=== PATIENT | female | born 1965 | race Caucasian/White ===

== ENCOUNTER 2023-02-08 10:53 | Inpatient (IN) | payer OTHER ==
[~2023-02-08] VITALS: Ht 165.1 cm; Wt 81.7 kg
[2023-02-08 11:27] LABS: BASOPHILS ABSOLUTE AUTO 0.02 K/mm3 (0.00-0.23); BASOPHILS PERCENT AUTO 0 % (0-2); EOSINOPHILS PERCENT AUTO 0 % (0-6); Hematocrit 42.1 % (33.0-51.0); Hemoglobin 14.5 g/dL (11.5-16.0); IMMATURE GRAN ABSOLUTE AUTO 0.02 K/mm3 (0.00-0.10); IMMATURE GRAN PERCENT AUTO 0 % (0-1); LYMPHOCYTES ABSOLUTE AUTO 0.67 K/mm3 (0.84-5.20); LYMPHOCYTES PERCENT AUTO 10 % (21-46); MONOCYTES PERCENT AUTO 4 % (4-13); Mean Corpuscular HGB 33.6 pg (26.0-34.0); Mean Corpuscular HGB Conc 34.4 g/dL (31.5-36.5); Mean Corpuscular Volume 98 fL (80-100); Mean Platelet Volume 9.6 fL (9.1-12.4); NEUTROPHILS ABSOLUTE AUTO 6.04 K/mm3 (1.96-9.15); NEUTROPHILS PERCENT AUTO 86 % (41-73); Platelet Count 162 K/mm3 (150-400); RDW Coefficient Variation 12.5 % (11.7-14.2); RDW Standard Deviation 45.4 fL (35.1-46.3); Red Blood Cell Count 4.31 M/mm3 (3.80-5.20); White Blood Cell Count 7.05 K/mm3 (4.00-11.30)
[2023-02-08 13:21] LABS: Albumin, Blood 3.6 g/dL (3.4-5.0); Albumin/Globulin Ratio 0.8 (0.8-1.8); Bilirubin, Total 0.6 mg/dL (0.1-1.0); Bun/Creatinine Ratio 6.8 (12.0-20.0); Calcium, Blood 8.9 mg/dL (8.5-10.1); Creatinine, Blood 1.18 mg/dL (0.40-1.00); Globulin, Blood 4.8 g/dL (2.2-4.0); Potassium, Blood 3.8 mmol/L (3.5-5.5); Total Protein, Blood 8.4 g/dL (6.4-8.2)
[2023-02-08] MEDS ORDERED: LEVSOD100 PO ×2 (15:14→15:16)
[2023-02-08] MEDS ORDERED: LOSA50 PO (15:17)
[2023-02-08] MEDS ORDERED: MELO7.5 PO (15:18)
[2023-02-08] MEDS ORDERED: ESCI20 PO (15:18)
[2023-02-08 15:50] LABS: International Normalized Ratio 1.01; Prothrombin Time Results 10.6 Sec (9.7-11.5)
[2023-02-08 15:57] VITALS: BP 106/71
--- NOTE | 2023-02-08 18:46 | NUR ---
PT HAS BEEN STABLE SINCE ADMISSION. PAIN MANAGED WELL WITH PRN DILAUDID. TOLERATING ICE WATER. NO NAUSEA OR EMESIS. PT INDEP TO BATHROOM NEEDED. IV FLUIDS INFUSING. PLAN FOR IV ABX AT THIS POINT WITHOUT SURGERY. PT CALLS APPROPRIATELY NEEDED.
[2023-02-08 19:45] VITALS: BP 103/64
[2023-02-08 21:10] VITALS: BP 117/61
--- NOTE | 2023-02-08 21:33 | NUR ---
CHEST PAIN AT 2109, I WENT TO ROUND ON THE PATIENT AND FOUND THE CHARGE NURSE AT BEDSIDE WITH THE PATIENT. THE PATIENT WAS COMPLAINING OF 6/10 SUBSTERNAL CHEST PAIN THAT WAS SHARP, STABBING, AND NON RADIATING. THE PATIENT STATED IT WORSENED WITH INSPIRATION. VITALS OBTAINED, STABLE AT THIS TIME. CHARGE NURSE BROUGHT IN THE EKG MACHINE, THIS WAS BEING PERFORMEDDRAnuel OVERTON ENTERED THE ROOM. HE STAYED AND READ THE EKG, STATED THERE WERE NI ACUTE RHYTHM OR RATE CHANGES AND THAT HER CARDIAC STATUS WAS STABLE FROM THIS POINT OF VIEW. HE PLANS TO ORDER LABS. THE PATIENT STATED BY THE TIME THE EKG WAS FINISHED THAT HER CHEST PAIN HAD ENDED AND THAT OVERALL IT ONLY LASTED 5 MINUTES. PLAN TO TAKE VITALS HOURLY UNTIL MIDNIGHT AND AWAIT LAB VALUES, PLAN TO CALL WITH FURTHER CONCERNS
--- NOTE | 2023-02-08 21:37 | NUR ---
LATE ENTRY THIS RN WENT INTO PTS RM TO FIX IV FROM BEEPING WHILE PRIMARY NURSE IN ANOTHER RM & PT REPORTED 5/10 SHARP CHEST PAIN RADIATING ACROSS CHEST, STATED SHE HAD NO CARDIAC HX. PT WAS DYSPNIC AT THIS TIME. PRIMARY NURSE CAME IN & UPDATED HER ON PTS CHEST PAIN. VITALS TAKEN, EKG STARTED & DR OVERTON CAME INTO PTS RM TO ASSESS PT. BY THE TIME EKG DONE, PT REPORTED CHEST PAIN HAD CLEARED UP BUT IT LASTED ROUGHLY 5MIN. DR OVERTON INFORMED HE WOULD PLACE NEW ORDERS.
[2023-02-08 22:23] VITALS: BP 131/75
[2023-02-09] VITALS (9 sets, daily range): BP systolic 115–186; BP diastolic 61–86
[2023-02-09 03:57] LABS: Hematocrit 34.2 % (33.0-51.0); Hemoglobin 11.4 g/dL (11.5-16.0); Mean Corpuscular HGB 33.2 pg (26.0-34.0); Mean Corpuscular HGB Conc 33.3 g/dL (31.5-36.5); Mean Corpuscular Volume 100 fL (80-100); Mean Platelet Volume 9.7 fL (9.1-12.4); Platelet Count 127 K/mm3 (150-400); RDW Coefficient Variation 12.9 % (11.7-14.2); RDW Standard Deviation 47.3 fL (35.1-46.3); Red Blood Cell Count 3.43 M/mm3 (3.80-5.20); White Blood Cell Count 6.66 K/mm3 (4.00-11.30)
[2023-02-09 04:19] LABS: BAND PERCENT MAN 14 % (0-8); BASOPHILS PERCENT MAN 0 % (0-2); EOSINOPHILS PERCENT MAN 0 % (0-6); LYMPHOCYTES ABSOLUTE MAN 0.73 K/mm3 (0.84-5.20); LYMPHOCYTES PERCENT MAN 11 % (21-46); MONOCYTES PERCENT MAN 0 % (4-13); NEUTROPHILS ABSOLUTE MAN 5.92 K/mm3 (1.96-9.15); SEG NEUTROPHILS PERCENT MAN 75 % (41-73); TOTAL CELLS COUNTED 100
[2023-02-09 04:35] LABS: Bun/Creatinine Ratio 11.9 (12.0-20.0); Calcium, Blood 7.7 mg/dL (8.5-10.1); Creatinine, Blood 1.09 mg/dL (0.40-1.00); Potassium, Blood 3.7 mmol/L (3.5-5.5)
--- NOTE | 2023-02-09 05:23 | NUR ---
SHIFT SUMMARY SEE PREVIOUS NOTE FOR CARDIAC EVENT, NO NEW ORDERS OBTAINED AT THAT TIME. PT HAS REMAINED ASYMPTOMATIC SINCE. VSS. PT SLEPT ON AND OFF T/O THE NIGHT. MEDICATED FOR PAIN REGULARLY WITH PRN'S. PT TOLLERATING CLEAR PO INTAKE W/O N/V. PT VOIDING W/O DIFFICULTY. NO FLATTUS OR BM'S NOTED. PLAN FOR PT TO BE ASSESSED TO SEE IF ABD SURGERY IS NEEDED. THE PATIENT IS CURRENTLY SLEEPING, IN NO DISTRESS, CALL LIGHT IN REACH
--- NOTE | 2023-02-09 10:05 | NUR ---
IGNITION RISK: PATIENT EDUCATED ON RISK REGARDING IGNITION SOURCES AND RISK OF INJURY WHILE OXYGEN IS IN USE. PATIENT DENIES SMOKING AND VERBALIZE UNDERSTANDING.
--- NOTE | 2023-02-09 17:37 | NUR ---
SHIFT SUMMARY: PT REMAINS ALERT AND ORIENTED X4. ABLE TO FOLLOW COMMANDS AND MAKE NEEDS KNOWN. BP AND HR STABLE, AFEBRILE, SATS >94% ON ROOM AIR. PT WITH NON-PRODUCTIVE COUGH, BREATHING TX ORDERED. PT COMPLAINING OF 8/10 ABDOMINAL PAIN THROUGHOUT THE DAY, MEDICATED PER EMAR. SISTER AT BEDSIDE THIS AFTERNOON AND UPDATED ON PT CARE WITH PERMISSION. NS GTT 200ML/HR. SBA TO AND FROM BATHROOM. NO BM. BED IN LOW, CALL LIGHT IN REACH, WILL REPORT TO ONCOMING RN.
[2023-02-09 23:03] LABS: Base Excess Venous -3.1 mmol/L; Bicarbonate Venous 20.9 mmol/L (24.0-30.0); PCO2 Venous 59.5 mmHg (38-42); pH Blood Venous 7.23 (7.34-7.37)
--- NOTE | 2023-02-09 23:36 | NUR ---
REPORT REPORT GIVEN TO PCU NURSE. PT TO BE TRANSFERRED TO PCU 3
[2023-02-10] VITALS (21 sets, daily range): BP systolic 108–147; BP diastolic 63–85
--- NOTE | 2023-02-10 | NUR ---
SUMMARY OF EVENTS AT 2220 I TOOK THE PATIENTS VITALS AND NOTED HTN, HIGH RR, AND THAT THE PT HAS INCREASED WOB AND APPEARED LETHARGIC. CALL PLACED TO DR OVERTON. ORDER OBTAINED OR VBG, CHEST X RAY, RESPIRATORY PANNEL, AND A SPUTUM CULTURE. RESULTS CAME BACK FROM VBG, DR QUENTIN HINOJOSA UPDATED ON THIS. RECIEVED ORDER TO MOVE PT TO PCU AND PUT HER ON A BIPAP. DURING PACKING UP PTS BELONGINGS, PT REPORTS THAT SHE RECIEVED A PREVIOUS DIAGNOSIS OF LATENT TB. DR OVERTON UPDATED AGAIN, HE THEN EVALUATED HER X RAY AND SAW NO SIGN OF TB, BUT PLANS TO RUN FURTHER TESTS. PT TRANSFERRED TO PCU AT 2342.
[2023-02-10 00:14] LABS: Adenovirus Not Detected (NOT DETECT); Bordetella pertussis Not Detected (NOT DETECT); Chlamydophila pneumoniae Not Detected (NOT DETECT); Coronavirus 229E Not Detected (NOT DETECT); Coronavirus HKU1 Not Detected (NOT DETECT); Coronavirus NL63 Not Detected (NOT DETECT); Coronavirus OC43 Not Detected (NOT DETECT); Human Metapneumovirus Not Detected (NOT DETECT); Human Rhinovirus/Enterovirus Not Detected (NOT DETECT); Influenza A/2009-H1 Detected (NOT DETECT); Influenza A/H1 Not Detected (NOT DETECT); Influenza A/H3 Not Detected (NOT DETECT); Influenza B Not Detected (NOT DETECT); Mycoplasma pneumoniae Not Detected (NOT DETECT); Parainfluenza Virus 1 Not Detected (NOT DETECT); Parainfluenza Virus 2 Not Detected (NOT DETECT); Parainfluenza Virus 3 Not Detected (NOT DETECT); Parainfluenza Virus 4 Not Detected (NOT DETECT); Respiratory Syncytial Virus Not Detected (NOT DETECT); SARS-Cov-2 (COVID-19), BioFire Not Detected (NOT DETECT)
[2023-02-10 00:25] LABS: Hematocrit 33.7 % (33.0-51.0); Hemoglobin 11.6 g/dL (11.5-16.0); Mean Corpuscular HGB 33.8 pg (26.0-34.0); Mean Corpuscular HGB Conc 34.4 g/dL (31.5-36.5); Mean Corpuscular Volume 98 fL (80-100); Mean Platelet Volume 9.8 fL (9.1-12.4); Platelet Count 124 K/mm3 (150-400); RDW Coefficient Variation 12.9 % (11.7-14.2); RDW Standard Deviation 46.5 fL (35.1-46.3); Red Blood Cell Count 3.43 M/mm3 (3.80-5.20)
[2023-02-10 00:44] LABS: Albumin, Blood 2.6 g/dL (3.4-5.0); Albumin/Globulin Ratio 0.7 (0.8-1.8); Bilirubin, Total 0.4 mg/dL (0.1-1.0); Bun/Creatinine Ratio 8.9 (12.0-20.0); Calcium, Blood 7.8 mg/dL (8.5-10.1); Creatinine, Blood 0.78 mg/dL (0.40-1.00); Globulin, Blood 3.9 g/dL (2.2-4.0); Potassium, Blood 3.5 mmol/L (3.5-5.5); Total Protein, Blood 6.5 g/dL (6.4-8.2)
[2023-02-10 01:02] LABS: BAND PERCENT MAN 12 % (0-8); BASOPHILS PERCENT MAN 0 % (0-2); EOSINOPHILS PERCENT MAN 0 % (0-6); LYMPHOCYTES % ATYPICAL MANUAL 1 % (0-0); LYMPHOCYTES ABSOLUTE MAN 0.35 K/mm3 (0.84-5.20); LYMPHOCYTES PERCENT MAN 21 % (21-46); MONOCYTES ABSOLUTE MAN 0.11 K/mm3 (0.16-1.47); MONOCYTES PERCENT MAN 7 % (4-13); NEUTROPHILS ABSOLUTE MAN 1.13 K/mm3 (1.96-9.15); SEG NEUTROPHILS PERCENT MAN 59 % (41-73); TOTAL CELLS COUNTED 100
[2023-02-10 04:33] LABS: Base Excess Venous -4.9 mmol/L; PCO2 Venous 49.6 mmHg (38-42); pH Blood Venous 7.26 (7.34-7.37)
--- NOTE | 2023-02-10 06:17 | NUR ---
ASSUMPTION OF CARE AND SHIFT SUMMARY PT TRANSFERRED FROM SURGICAL FLOOR AT 2340, THIS RN ASSUMED CARE OF PT AT THIS TIME. PT ARRIVED VIA HOSPITAL BED ON 2 L OF O2 VIA NC. PT APPEARS PALE BUT IS A&O X4. PT IS INTERACTING AND RESPONDING APPROPRIATELY TO QUESTIONS. PT PLEASANT AND COOPERTIVE WITH CARE. PT TRANSFERRED TO PCU HOSPITAL BED. VSS AT THIS TIME. PT REPORTS 9/10 PAIN IN ABDOMEN, MEDICATION PER EMAR ADMINISTERD. PT ORIENTED TO ROOM AND ASSESSMENT COMPLETE. BIPAP PLACED ON PT BY RT. PT LUNG SOUNDS WHEEZY, PT DENIES SOB OR DIFFICULTY BREATHING. PT REMAINS ON BIPAP W/BREAKS NEEDED. REPEAT VBG NOT IMPROVED, SEE NOTES AND CHART. RESIDENT NOTIFIED, NO NEW ORDERS. PT LACTIC ACID CONTINUES TO INCREASE, RESIDENT NOTIFIED. ORDER FOR 500 ML BOLUS OF NS X1 AND CONTINUATION OF NS FLUIDS PER EMAR. ABX COVERAGE PER EMAR. PT USING BSC W/1 PERSON ASSIST, PT TOLERATING THIS WELL. PT VOIDING WELL. NO BM THIS SHIFT. BS PRESENT. PT REPORTS NO FLATUS OR "GAS". DENIES N/V THIS SHIFT. DENIES CHILLS. PT HAD MAX TEMP OF 101.0 ON TRANSFER BUT SINCE HAS DECREASED, SEE VITAL SIGNS. PT CONTINUES TO HAVE A PRODUCTIVE COUGH W/THICK GREEN SPUTUM. I.S. AND FLUTTER VALVE AT BEDSIDE, PT IS COMPLETING THESE INDEPENDENTLY. PT INTAKE OF WATER IS GOOD, PT MUCOUS MEMBRANES DRY AND PT REPORTS "DRY MOUTH". PT RESTING ON AND OFF THROUGHOUT SHIFT. WILL UPDATE ONCOMING RN. PT EDUCATED ON RISK OF INJURY AND IGNITION RISKS. PT REPORTS PAST TOBACCO USE, REPORTS QUITTING 2 WEEKS AGO. PT DECLINES ANY NICOTINE PATCHES. PT EDUCATED ON TOBACCO FREE CAMPUS. PT VERBALIZES UNDERSTANDING OF RISKS AND TOBACCO FREE CAMPUS. CALL LIGHT IN REACH AND PT CURRENTLY SLEEPING
[2023-02-10 06:34] LABS: Hemoglobin 10.2 g/dL (11.5-16.0); Mean Corpuscular HGB 32.8 pg (26.0-34.0); Mean Corpuscular HGB Conc 32.9 g/dL (31.5-36.5); Mean Corpuscular Volume 100 fL (80-100); Mean Platelet Volume 9.6 fL (9.1-12.4); Platelet Count 124 K/mm3 (150-400); RDW Coefficient Variation 13.1 % (11.7-14.2); RDW Standard Deviation 47.6 fL (35.1-46.3); Red Blood Cell Count 3.11 M/mm3 (3.80-5.20)
[2023-02-10 06:57] LABS: Albumin, Blood 2.3 g/dL (3.4-5.0); Albumin/Globulin Ratio 0.6 (0.8-1.8); Bilirubin, Total 0.5 mg/dL (0.1-1.0); Bun/Creatinine Ratio 7.7 (12.0-20.0); Calcium, Blood 7.6 mg/dL (8.5-10.1); Creatinine, Blood 0.78 mg/dL (0.40-1.00); Globulin, Blood 3.8 g/dL (2.2-4.0); Potassium, Blood 3.8 mmol/L (3.5-5.5); Total Protein, Blood 6.1 g/dL (6.4-8.2)
[2023-02-10 06:58] LABS: BAND PERCENT MAN 12 % (0-8); BASOPHILS PERCENT MAN 0 % (0-2); EOSINOPHILS PERCENT MAN 0 % (0-6); LYMPHOCYTES % ATYPICAL MANUAL 2 % (0-0); LYMPHOCYTES ABSOLUTE MAN 0.43 K/mm3 (0.84-5.20); LYMPHOCYTES PERCENT MAN 6 % (21-46); MONOCYTES ABSOLUTE MAN 0.05 K/mm3 (0.16-1.47); MONOCYTES PERCENT MAN 1 % (4-13); NEUTROPHILS ABSOLUTE MAN 4.91 K/mm3 (1.96-9.15); SEG NEUTROPHILS PERCENT MAN 79 % (41-73); TOTAL CELLS COUNTED 100
--- NOTE | 2023-02-10 07:30 | NUR ---
PHONE CALL: Pt's daughter given update after permission was reeived from patient.
--- NOTE | 2023-02-10 11:16 | NUR ---
PRE-OP NOTE PT REMAINS IN HOSPITAL ROOM, SISTER AT BEDSIDE, PT A&OX4, DROWSY, WHEEZES HEARD BILATERALLY, BREATHING RA. PT PREPARED FOR SURGERY IN HOSPITAL ROOM. Pre-Op teaching done. Pt verbalizes understanding.PT LAST DRANK CLEARS AT 10AM, DR CASTELAN AWARE. PT RINGS GIVEN TO SISTER PRIOR TO SURGERY, DENTURES REMOVED AND LEFT IN HOSPITAL ROOM. NO OTHER CONCERNS
--- NOTE | 2023-02-10 11:28 | NUR ---
PT TO OR: on hospital bed with OR nurses.
--- NOTE | 2023-02-10 15:15 | NUR ---
PT BACK TO ROOM
--- NOTE | 2023-02-10 18:02 | NUR ---
SHIFT SUMMARY: I assumed care of this patient at 0700. Pt to OR today for bowel resection and illiostomy placement. Since return, pt has denied pain. Supplemental O2 titrated down to 2L NC which pt is tolerating well. Ostomy bag with scant red drainage. JONA dressing midline; C/D/I. Pt's sister at bedside and supportive for much of day.
[2023-02-11] VITALS (8 sets, daily range): BP systolic 146–178; BP diastolic 79–89
[2023-02-11 04:59] LABS: BASOPHILS ABSOLUTE AUTO 0.04 K/mm3 (0.00-0.23); BASOPHILS PERCENT AUTO 1 % (0-2); Hematocrit 31.6 % (33.0-51.0); Hemoglobin 10.7 g/dL (11.5-16.0); Mean Corpuscular HGB 33.4 pg (26.0-34.0); Mean Corpuscular HGB Conc 33.9 g/dL (31.5-36.5); Mean Corpuscular Volume 99 fL (80-100); Mean Platelet Volume 9.9 fL (9.1-12.4); Platelet Count 158 K/mm3 (150-400); RDW Coefficient Variation 13.2 % (11.7-14.2); RDW Standard Deviation 47.8 fL (35.1-46.3); White Blood Cell Count 8.75 K/mm3 (4.00-11.30)
[2023-02-11 05:03] LABS: EOSINOPHILS ABSOLUTE AUTO 0.01 K/mm3 (0.00-0.68); EOSINOPHILS PERCENT AUTO 0 % (0-6); IMMATURE GRAN ABSOLUTE AUTO 0.03 K/mm3 (0.00-0.10); IMMATURE GRAN PERCENT AUTO 0 % (0-1); LYMPHOCYTES ABSOLUTE AUTO 0.71 K/mm3 (0.84-5.20); LYMPHOCYTES PERCENT AUTO 8 % (21-46); MONOCYTES ABSOLUTE AUTO 0.27 K/mm3 (0.16-1.47); MONOCYTES PERCENT AUTO 3 % (4-13); NEUTROPHILS ABSOLUTE AUTO 7.69 K/mm3 (1.96-9.15); NEUTROPHILS PERCENT AUTO 88 % (41-73)
[2023-02-11 05:16] LABS: Bun/Creatinine Ratio 12.6 (12.0-20.0); Calcium, Blood 8.2 mg/dL (8.5-10.1); Creatinine, Blood 0.71 mg/dL (0.40-1.00); Potassium, Blood 3.8 mmol/L (3.5-5.5)
[2023-02-11 05:22] LABS: BAND PERCENT MAN 7 % (0-8); BASOPHILS PERCENT MAN 0 % (0-2); EOSINOPHILS PERCENT MAN 0 % (0-6); LYMPHOCYTES ABSOLUTE MAN 0.61 K/mm3 (0.84-5.20); LYMPHOCYTES PERCENT MAN 7 % (21-46); MONOCYTES PERCENT MAN 0 % (4-13); NEUTROPHILS ABSOLUTE MAN 8.13 K/mm3 (1.96-9.15); SEG NEUTROPHILS PERCENT MAN 86 % (41-73); TOTAL CELLS COUNTED 100
--- NOTE | 2023-02-11 06:24 | NUR ---
SHIFT [place] PT REMAINS A&O X4, ALTHOUGH LETHARGIC AT TIMES. PT ABLE TO BE AROUSED AND IS RESPONDING TO QUESTIONS APPROPRIATELY. PT STATES MIND "IS FOGGY FROM WHAT HAS HAPPENED AND LOST TRACK OF EVENTS OR TIME". PT REDIRECTED. VSS; ALTHOUGH LAST SET OF VITALS SHOWED ELAVATED SBP 0F 176-178. RESIDENT NOTIFIED, ORDERS FOR 10MG HYDRALIZINE IV PUSH X1. THIS RN ADMINISTERED, WILL REASSESS BP. PT DOES REPORT A HEADACHE. PT TITRATED OFF O2 AROUND 0430 THIS AM, SPO2 90-94%. OCCASSIONALLY DESATS WHILE SLEEPING TO 88-89% BUT DOES NOT SUSTAIN. PT DID NOT NEED BIPAP THIS SHIFT, ALTHOUGH BIPAP STILL AT BEDSIDE. LS IMPROVING BUT STILL COARSE AND MILDLY WHEEZY. PT STILL HAS PRODUCTIVE COUGH, I.S AND FLUTTER VALCE AT BEDSIDE. PT COMPLETING EXERCISES. EDUCATION PROVIDED ON IMPORTANCE OF THIS. ILIOSTOMY SITE WNL; STOMA RED IN APPEARANCE, APPLIANCE IN PLACE WITH SMALL AMOUNT OF RED DRAINAGE. OF NOTE, SOME DRAINAGE DID LEAK OUT OF BAG ONTO DRESSING LAST NIGHT. PT REPORTS PAIN 3-7/10; MEDICATION ADMINSTERED PER EMAR NEEDED. PT UP IN ROOM TO USE BSC AND DANGLING ON EOB. PT TOLERATING MOVEMENT AND AMBULATION WELL. PT SEEMS WITHDRAWN AND FLAT AFFECT, INITIALLY UNINTERESTED IN ILIOSTOMY BUT HAS SLOWLY BEGAN ASKING QUESTIONS. EDUCATION PROVIDED PT ACCEPTS. WILL PASS ALONG TO DAYSHIFT RN. PT ANXIOUS TO SEE SURGEON, CONTINUES TO ASK "WHEN HE WILL VISIT AND BE HERE TO CHECK IN". PT VOIDING WELL THIS SHIFT. NS INFUSING AT 100 MLS/HR PER EMAR. ABX ADMINISTERED PER EMAR. CALL LIGHT IN REACH. WILL UPDATE ONCOMING RN
--- NOTE | 2023-02-11 10:02 | NUR ---
AM NOTE: ALERT AND ORIENTED X4. GROGGY/DROWSY UPON WAKING UP THIS AM. ABLE TO TELL ME ALL DETAILS OF WHY PATIENT IS HERE AND WHAT IS GOING ON. DENIES NUMBNESS/TINGLING. ON ROOM AIR SATING MID 90'S. LUNGS SOUNDING COARSE WITH WHEEZE. RESPIRATORY IN THIS AM AND BREATHING TREATMENT GIVEN. BIPAP ON STANDBY AT BEDSIDE, ALTHOUGH PATIENT DID NOT USE LAST NIGHT. OCCASIONAL COUGH WITH GREEN/YELLOW SPUTUM. NEEDING SPUTUM SAMPLE. TELE SHOWING SR WITH HR 80'S. DENIES CHEST PAIN/PRESSURE/PALPITATIONS. BP STABLE. NO SIGNS OF EDEMA. NS INFUSING PER EMAR. ABX INFUSING. BOWEL TONES HYPOACTIVE. PATIENT PASSING GAS, NO BOWEL MOVEMENT. NEW ILEOSTOMY. STOMA RED WITH SEROSANG DRAINAGE DRAINING INTO BAG. MIDLINE JONA DRESSING IN PLACE. PATIENT REMAINS NPO. ORAL CARE Q4 AND NEEDED. UP TO BSC TO VOID THIS AM. MEDICATED FOR ABDOMINAL PAIN THIS AM. CALL LIGHT IN REACH.
--- NOTE | 2023-02-11 12:31 | NUR ---
DR. HEARD IN TO SEE PATIENT. CLEARED FOR CLEAR LIQUID DIET. EATING JELLO AND DIRNKING WATER AT THIS TIME. PATIENT SITTING UP IN BED AND ABLE TO TURN SELF. DRESSING AND OSTOMY CHANGED WITH 2ND FOR HELP. PATIENT DENIES PAIN AT THIS TIME. STOMA REMAINS BRIGHT RED WNL. MIDLINE DRESSING C/D/I. NOON VITALS STABLE. CALL LIGHT IN REACH. USING FLUTTER VALVE AND IS AT BEDSIDE.
--- NOTE | 2023-02-11 16:54 | NUR ---
SHIFT SUMMARY: NO ACUTE CHANGES. PATIENT VITAL SIGNS REMAIN STABLE. TOLERATING SMALL AMOUNT OF CLEAR LIQUID DIET. DRANK A VERY SMALL AMOUNT OF WATER AND HAD ONE JELLO. OSTOMY AND MIDLINE DRESSING CHANGED. DR. HEARD IN THIS AM. ILEOSTOMY WNL. STOMA REMAINS RED AND DRAINING SEROSANG FLUID. NO GAS/AIR NOTED IN OSTOMY BAG. REMAINS ON ROOM AIR. PATIENT USING FLUTTER AND IS AT BEDSIDE. UP TO BSC TO URINATE. TURNING AND MOVING SELF AROUND IN BED. PATIENT GETTING UP TO EDGE OF BED ABOUT EVERY 2 HOURS AND UP WALKING TO BSC WHEN NEEDING TO URINATE. BOWEL TONES HYPOACTIVE. DENIES NAUSEA/VOMITING THROUGHOUT SHIFT. PT UPDATING FAMILY ON PHONE THROUGHOUT SHIFT. NS AND ABX INFUSING PER EMAR. REMAINS ON ROOM AIR. NO TELE EVENTS, SR WITH HR 60-80'S. CONTINUES TO DENY CHEST PAIN/PRESSURE. CALL LIGHT IN REACH. MAKING NEEDS KNOWN. TALKING WITH SISTER ON PHONE SITTING AT EDGE OF BED AT THIS TIME.
[2023-02-11 20:08] LABS: QUANTIFERON MITOGEN VALUE 1.31 IU/mL (.); QUANTIFERON NIL VALUE 0.07 IU/mL (.); QUANTIFERON TB1 AG VALUE 0.11 IU/mL (.); QUANTIFERON TB2 AG VALUE 0.12 IU/mL (.); QUANTIFERON-TB GOLD PLUS Negative (Negative)
--- NOTE | 2023-02-11 21:47 | NUR ---
ASSUMED CARE: Assumed care of pt at 1900. She is sleeping, wakes easily to voice. Oriented x4, denies pain. At around 2044, her O2 sats were noted to be in the 70s on room air. Placed on 2L NC, sats now in high 90s. Her lungs sound coarse with rhonchi and expiratory wheezes. Non-productive cough. Ostomy and abdominal dressing clean/dry/intact. Small amount of liquid brown output in ostomy, no gas yet. Pt educated on no ignition policy, she verbalizes understanding and agrees to comply with policy.
[2023-02-12] VITALS (8 sets, daily range): BP systolic 142–181; BP diastolic 72–86
[2023-02-12 04:25] LABS: Hematocrit 27.6 % (33.0-51.0); Hemoglobin 9.6 g/dL (11.5-16.0); Mean Corpuscular HGB Conc 34.8 g/dL (31.5-36.5); Mean Corpuscular Volume 98 fL (80-100); Mean Platelet Volume 9.8 fL (9.1-12.4); Platelet Count 161 K/mm3 (150-400); RDW Coefficient Variation 13.2 % (11.7-14.2); RDW Standard Deviation 47.6 fL (35.1-46.3); Red Blood Cell Count 2.82 M/mm3 (3.80-5.20)
[2023-02-12 05:07] LABS: Bun/Creatinine Ratio 15.2 (12.0-20.0); Creatinine, Blood 0.72 mg/dL (0.40-1.00); Potassium, Blood 3.7 mmol/L (3.5-5.5)
[2023-02-12 05:36] LABS: BASOPHILS PERCENT MAN 0 % (0-2); EOSINOPHILS PERCENT MAN 0 % (0-6); LYMPHOCYTES % ATYPICAL MANUAL 1 % (0-0); LYMPHOCYTES ABSOLUTE MAN 0.84 K/mm3 (0.84-5.20); LYMPHOCYTES PERCENT MAN 9 % (21-46); METAMYELOCYTE ABSOLUTE MAN 0.08 K/mm3 (0.00-0.00); METAMYELOCYTE PERCENT MAN 1 % (0-0); MONOCYTES ABSOLUTE MAN 0.58 K/mm3 (0.16-1.47); MONOCYTES PERCENT MAN 7 % (4-13); NEUTROPHILS ABSOLUTE MAN 6.88 K/mm3 (1.96-9.15); SEG NEUTROPHILS PERCENT MAN 82 % (41-73); TOTAL CELLS COUNTED 100
--- NOTE | 2023-02-12 06:42 | NUR ---
SHIFT SUMMARY: Pt slept well overnight. Medicated for pain with 0.5mg dilaudid x1. Pain well controlled. Scant amount of drainage on abdominal dressing and small amount of liquid brown drainage in ostomy bag. No gas yet. She has been in sinus bradycardia with rates dipping into the 40s overnight. BPs elevated at times but did not need PRN hydralazine. She remains on 1L NC due to desatting last night to the 70s while asleep. Lungs sound very coarse and wheezy.
--- NOTE | 2023-02-12 15:31 | NUR ---
PT TRANSITIONED TO SURGICAL STATUS WITH NO TELE. PT STILL HAS SOME ABD PAIN 7/10 MEDICATED PER EMAR, PT STILL HASNT PASS GAS NO BOWEL TONES DR VÁZQUEZ AWARE AWAITING FOR SURGEON TO SEE PT. IV PAIN MEDICINE SWITCHED TO PERCOCET PO. PT HAS HEARD A RUMBLING SOUND ON THE ILEOSTOMY THIS MORNING COUPLES TIMES, ILEOSTOMY HAS SOME SMALL AMOUNT OF BROWN LIQUID OUTPUT, BAG AND DRESSING WAS CHANGE DUE TO LEAKAGE TO THE JONA DRESSING, TRAFFIC I MANAGER RECOMMENDED TO PLACE MEDIPORE DRESSING INSTEAD DUE TO JONA NOT WORKING PROPERLY DUE TO LEAKAGE. JONA DRESSING WAS REMOVED AND REPLACED WITH MEDIPORE DRESSING. DR CARRANZA MADE AWARE. MARBELLA INTACT NO REDNESS AND UNUSUAL DRAINAGE NOTED ON THE INCISION. PT HAS BEEN GETTING UP TO USE BEDSIDE COMMODE IN THE ROOM INDEPENDENTLY. PT EVAL DONE NO CONCERNS AT THIS TIME. NS DC'D PER DR VÁZQUEZ PT REMAINS ON CLEAR LIQUID DIET. NO OTHER ISSUES ENCOUNTERED PT HAS BEEN CALLING APPROPRIATELY. WILL CONTINUE TO MONITOR.
--- NOTE | 2023-02-12 15:35 | NUR ---
TRIED TO REACH DR. CURRY PER DR. CARRANZA. UNABLE TO GET AHOLD OF HIM AT THIS TIME.
--- NOTE | 2023-02-12 15:37 | NUR ---
TRANSFER OF CARE: BEDSIDE REPORT GIVEN TO JAMAR FOX
--- NOTE | 2023-02-12 16:07 | NUR ---
TALKED TO DR. KRISHNAN I INFORMED DR. KRISHNAN THAT THE PT HAS ABSENT BOWEL SOUNDS IN ALL FOUR QUADRANTS, HAS A SHARP ACHING PAIN IN HER RIGHT SIDE, AND SHE HAD NOT PASSED GAS POST OP DAY TWO. HE GAVE NO FURTHER ORDERS AT THIS TIME.
--- NOTE | 2023-02-12 16:08 | NUR ---
PT PASSED GAS.
--- NOTE | 2023-02-12 16:39 | NUR ---
TOOK OVER REPORT FROM FLORENTIN TSAI RN. PT PENDING A BED ON SURGICAL FLOOR. REPORT WILL BE GIVEN TO MARGUERITE FOX. PT HYPERTENSIVE. MEDICATED W/ 10MG HYDRALIZINE. BP STABLE NOW.
--- NOTE | 2023-02-12 17:00 | NUR ---
TRANSFER TO ROOM 229 PATIENT TO ROOM 229 VIA W/C. SBA TO CHAIR, ENCOURAGED PATIENT TO SIT UP IN CHAIR UNTIL DINNER MEAL. PATIENT REPORTS PAIN 8/10 TO ABDOMEN AT THIS TIME, PLAN TO MEDICATE PER EMAR. OSTOMY INTACT, NO OUTPUT AT THIS TIME. MIDLINE INCISION W/ MEDIPORE DRESSING C/D/I. ORIENTED TO ROOM & CALL LIGHT. PATIENT DENIES ANY SOURCE OF IGNITION AT THIS TIME. WILL REPORT TO ONCOMING RN AT 1900.
[2023-02-13 04:42] VITALS: BP 167/79
--- NOTE | 2023-02-13 07:04 | NUR ---
SHIFT SUMMARY POD3 PERF DIVERTICULITIS W/ BOWEL RESECT AND LOOP ILIOSTOMY TO RUQ. PT A&OX4, INDEPEND IN ROOM. MIDLINE INCISION C/D/I, OSTOMY AND MIDLINE DRESSING CHANGED X1 THIS SHIFT. PT EDUCATED ON OSTOMY CARE, CHANGE, AND EMPTYING. PT ISOLATION FOR POS H1N1 ALSO RECEIVING ZITHROMAX AND ZOSYN IV-SL ABX. LUNGS WHEEZE T/O W/ RESP NEB TX ORDERED. SPUTUM CX OBTAINED. PT REPORTS FEELING MUCH BETTER THIS A.M. CALL LIGHT W/IN REACH. NO ACUTE CHANGES THIS SHIFT.
[2023-02-13 07:08] LABS: Hematocrit 28.4 % (33.0-51.0); Hemoglobin 9.5 g/dL (11.5-16.0); Mean Corpuscular HGB Conc 33.5 g/dL (31.5-36.5); Mean Corpuscular Volume 99 fL (80-100); Mean Platelet Volume 9.7 fL (9.1-12.4); Platelet Count 217 K/mm3 (150-400); RDW Coefficient Variation 13.5 % (11.7-14.2); RDW Standard Deviation 49.1 fL (35.1-46.3); Red Blood Cell Count 2.88 M/mm3 (3.80-5.20); White Blood Cell Count 7.94 K/mm3 (4.00-11.30)
[2023-02-13 07:14] LABS: Bun/Creatinine Ratio 18.7 (12.0-20.0); Creatinine, Blood 0.7 mg/dL (0.40-1.00); Potassium, Blood 3.4 mmol/L (3.5-5.5)
[2023-02-13 07:44] VITALS: BP 181/92
[2023-02-13 07:46] VITALS: BP 181/92
[2023-02-13 08:39] LABS: BAND PERCENT MAN 1 % (0-8); BASOPHILS PERCENT MAN 0 % (0-2); EOSINOPHILS PERCENT MAN 0 % (0-6); LYMPHOCYTES % ATYPICAL MANUAL 2 % (0-0); LYMPHOCYTES ABSOLUTE MAN 1.34 K/mm3 (0.84-5.20); LYMPHOCYTES PERCENT MAN 15 % (21-46); MONOCYTES ABSOLUTE MAN 0.31 K/mm3 (0.16-1.47); MONOCYTES PERCENT MAN 4 % (4-13); NEUTROPHILS ABSOLUTE MAN 6.27 K/mm3 (1.96-9.15); SEG NEUTROPHILS PERCENT MAN 78 % (41-73); TOTAL CELLS COUNTED 100
[2023-02-13 11:30] VITALS: BP 153/83
[2023-02-13 14:38] VITALS: BP 168/85
--- NOTE | 2023-02-13 16:33 | NUR ---
SHIFT SUMMARY POD 3 EX LAP RESECTION WITH NEW ILEOSTOMY PT REPORTS PAIN TOLERABLE T/O SHIFT. DENIES NEED OF MEDICATION. ILEOSTOMY PRODUCING BROWN LIQUID DURING SHIFT. PT HAS HAD MINIMAL APPETITE AND TWO BOUTS OF EMESIS, MEDICATED PER EMAR. AMBULATING FREQUENTLY IN ROOMS. VOIDING. MIDLINE INCISION CDI. ILEOSTOMY REMAINS PINK AND BEEFY. PT WORKED WITH PHYSICAL THERAPY TODAY. STILL HAS INFREQUENT COUGH. REPORTS FEELING WHEEZY STILL.
[2023-02-14 00:08] VITALS: BP 141/75
[2023-02-14 05:53] VITALS: BP 167/80
--- NOTE | 2023-02-14 06:37 | NUR ---
SHIFT SUMMARY POD 3, FOR PERF DIVERTIC RESULTING IN LOOP ILEOSTOMY. A&OX4, COOPERATIVE AND INDEPENDENT TO BATHROOM. PT MEDICATED W/ LASIX PRIOR TO THIS SHIFT W/ GOOD RESULTS. PT REPORTED BREATHING IMPROVED. LUNGS CLEAR DURING SHIFT ASSESSMENT AND BP W/IN NORMAL RANGE. PT SLEPT WELL T/O NIGHT UNTIL THIS A.M. AND REPORTS FEELING FLUID RETENTION. PT OSTOMY MAINTAINS INTACT AND DRAINING DARK GREEN LIQUID. WILL REPORT OFF TO ONCOMING SHIFT FOR LASIX PER PT REQUEST. NO C/O N/V THIS SHIFT. CALL LIGHT W/IN REACH.
[2023-02-14 07:16] VITALS: BP 170/72
[2023-02-14 09:15] LABS: Bun/Creatinine Ratio 15.4 (12.0-20.0); Calcium, Blood 7.8 mg/dL (8.5-10.1); Creatinine, Blood 0.65 mg/dL (0.40-1.00); Magnesium, Blood 1.6 mg/dL (1.6-2.4); Potassium, Blood 3.2 mmol/L (3.5-5.5)
[2023-02-14 15:22] VITALS: BP 161/77
--- NOTE | 2023-02-14 17:43 | NUR ---
PT EDUCATED ON RISK OF IGNITION SOURCES AND RISK OF INJURY WHILE USING OXYGEN. PT DENIES SMOKING OR HAVING A STEWARD/STEWARDESS NIGHT AND VERBALIZED UNDERSTANDING
--- NOTE | 2023-02-14 18:48 | NUR ---
SUMMARY: PT IS POD4 LOOP ILEOSTOMY. A/O, VSS. SURGICAL SITE WNL. PT RAMYA FULL LIQUID DIET TODAY,NO N/V. SCANT AMT OF DRAINAGE FROM OSTOMY, NO FLATUS PRESENT TODAY. PT IS INDEPENDENT IN ROOM. REPORTED THAT IV AND PO LASIX HELPED RELIEVE SOME SOB AND ABD PRESSURE THAT SHE FELT IN THE MORNING. PT LUNGS WERE CLEAR AND DIM AT BASES, REMAINS STABLE ON RA. PAIN SEEMS TO BE WELL MANAGED WITH 1 PERCOCET PRN. PLAN IS FOR PT TO DC HOME WITH HER SISTER. NO ACUTE SAFETY CONCERNS.
[2023-02-14 21:26] VITALS: BP 160/78
[2023-02-15 04:46] LABS: Calcium, Blood 8.4 mg/dL (8.5-10.1); Creatinine, Blood 0.63 mg/dL (0.40-1.00); Potassium, Blood 3.5 mmol/L (3.5-5.5)
[2023-02-15 04:47] VITALS: BP 174/88
[2023-02-15 05:22] VITALS: BP 150/80
--- NOTE | 2023-02-15 05:59 | NUR ---
SHIFT SUMMARY PT A&OX4, AND COOPERATIVE WITH CARE. NO ACUTE CHANGES. MEDICATED FOR PAIN ONCE THIS SHIFT. PT DID HAVE SOME NAUSEA, MEDICATED WITH ZOFRAN ONCE. NO VOMITING. ELEVATED BLOOD PRESSURE 174/88, MEDICATED ONCE WITH HYDRALAZINE. ILEOSTOMY PUT OUT 180ML GREEN/LIQUIDY STOOL. MIDLINE INCISION C/D/I. CALLS APPROPRIATELY, CALL LIGHT WITHIN REACH.
[2023-02-15 08:04] VITALS: BP 157/70
--- NOTE | 2023-02-15 08:12 | NUR ---
PT ASSESSED FOR IGNITION SOURCES, NO FINDINGS.
--- NOTE | 2023-02-15 16:53 | NUR ---
SHIFT SUMMARY PT IS POD#5 LOOP ILEOSTOMY R/T PERF'D DIVERTIC. PT REPORTS ABD PAIN BUT DECLINES PAIN MEDIATION. HER BOWEL SOUNDS ARE HYPOACTIVE BUT SHE IS PRODUCING GREEN LIQUID STOOL FROM THE OSOMTY. OSTOMY APPLIANCE NOTED TO BE STARTING TO LEAK, APPLIANCE CHANGED. DURING APPLIANCE CHANGE PT WAS PROVIDED WITH EDUCATION. PT WAS RECEPTIVE TO EDUCATION AND PARTICIPATED WITH SOME PORTIONS OF THE CHANGE. PT HAS DIFFICUTLY VISUALIZING HER STOMA. ABD MIDLINE INCISION DRAINING SEROSANGUINOUS FLUID. WOUND CLEANSED WITH SKINTEGRITY AND CLEAN MEDIPORE DRESSING PLACED. 2 3/4 OVAL OSTOMY APPLIANCE USED WITH JEREMY WAFER FOR BETTER FIT AND SEAL AROUND STOMA. PT HAS BEEN INDEPENDENT IN THE ROOM. PT HAD ELEVATED ABD PAIN AND NAUSEA THIS AM, BUT HAS TOLERATED FULL LIQUID DIET SINCE THIS MORNING. PT WAS EDUCATED ABOUT ADVANCING DIET SLOWLY, PLAN TO CONTINUE WITH FULL LIQUID DIET AT THIS TIME. WILL MONITOR UNTIL REPORT TO NOC RN.
[2023-02-15 20:25] VITALS: BP 175/85
[2023-02-16 02:16] VITALS: BP 152/74
[2023-02-16 08:27] VITALS: BP 168/87
--- NOTE | 2023-02-16 08:59 | NUR ---
SUMMARY CONFIIRMED WITH HOSPITALIST AND DR LYONS THEY WANTED TO CURRENTLY NOT GIVE IV FLUIDS DUE TO PTS PREVIOUS ISSUE WITH POSSIBLE FLUID OVERLOAD AND LASIX BEING GIVEN.PT WITH INCREASED LIQUID OUTPUT REPORTED PER OSTOMY REMAINS GREEN IN COLOR.
--- NOTE | 2023-02-16 10:27 | NUR ---
DR LYONS IN TO SEE PT.
--- NOTE | 2023-02-16 10:28 | NUR ---
FIRE SAFETY EDUCATION EDUCATED PT ON FIRE SAFETY. PT VERBALIZED UNDERSTANDING AND DENIES POSSESSIO OF CIGARETTES/MATCHES/LIGHTERS, ETC.
[2023-02-16 14:08] VITALS: BP 150/88
--- NOTE | 2023-02-16 17:12 | NUR ---
SUMMARY PT'S OSTOMY APPLIANCE HAD TO BE REPLACED AT SHIFT CHANGE AND TWICE THIS AM DUE TO LEAKING. AT SECOND APPLIANCE CHANGE, OSTOMY BELT PLACED TO HELP SECURE DEVICE. STOMA PUTTING OUT GREENISH BROWN LIQUID. PT ADVANCED TO REGULAR DIET AT LUNCH. INDEPENDENT IN ROOM. C/O OF BACK PAIN THIS AFTERNOON. PROVIDED ICE PACK FOR COMFORT AND MEDICATING PER ORDERS FOR PAIN. PT PLEASANT AND COOPERATIVE. CALL LIGHT IN REACH.
[2023-02-16 20:15] VITALS: BP 136/77
[2023-02-17 02:46] VITALS: BP 133/83
[2023-02-17 04:46] LABS: BASOPHILS ABSOLUTE AUTO 0.03 K/mm3 (0.00-0.23); BASOPHILS PERCENT AUTO 0 % (0-2); EOSINOPHILS ABSOLUTE AUTO 0.14 K/mm3 (0.00-0.68); EOSINOPHILS PERCENT AUTO 1 % (0-6); Hematocrit 33.4 % (33.0-51.0); Hemoglobin 11.2 g/dL (11.5-16.0); IMMATURE GRAN ABSOLUTE AUTO 0.22 K/mm3 (0.00-0.10); IMMATURE GRAN PERCENT AUTO 2 % (0-1); LYMPHOCYTES ABSOLUTE AUTO 1.94 K/mm3 (0.84-5.20); LYMPHOCYTES PERCENT AUTO 20 % (21-46); MONOCYTES ABSOLUTE AUTO 0.56 K/mm3 (0.16-1.47); MONOCYTES PERCENT AUTO 6 % (4-13); Mean Corpuscular HGB 32.7 pg (26.0-34.0); Mean Corpuscular HGB Conc 33.5 g/dL (31.5-36.5); Mean Corpuscular Volume 98 fL (80-100); NEUTROPHILS ABSOLUTE AUTO 6.87 K/mm3 (1.96-9.15); NEUTROPHILS PERCENT AUTO 70 % (41-73); Platelet Count 390 K/mm3 (150-400); RDW Standard Deviation 45.9 fL (35.1-46.3); Red Blood Cell Count 3.42 M/mm3 (3.80-5.20); White Blood Cell Count 9.76 K/mm3 (4.00-11.30)
[2023-02-17 05:03] LABS: Bun/Creatinine Ratio 15.1 (12.0-20.0); Calcium, Blood 8.2 mg/dL (8.5-10.1); Creatinine, Blood 0.6 mg/dL (0.40-1.00); Potassium, Blood 2.9 mmol/L (3.5-5.5)
--- NOTE | 2023-02-17 05:59 | NUR ---
SHIFT SUMMARY PT A&OX4, AND COOPERATIVE WITH CARE. NO ACUTE CHANGES. PAIN COVERED WITH PO PERCOCET. RAMYA PO INTAKE, NO NAUSEA. SCANT SS OUTPUT ON MIDLINE MEDIPORE. ILEOSTOMY OUTPUT GREEN/LIQUIDY, PT HAS BEEN INDEPENDENTLY MARKING/EMPTYING APPLIANCE. CALLS APPROPRIATELY, CALL LIGHT WITHIN REACH.
[2023-02-17 07:24] VITALS: BP 136/87
[2023-02-17] MEDS ORDERED: AMLO5 PO (14:15)
[2023-02-17 16:23] VITALS: BP 152/83
--- NOTE | 2023-02-17 18:04 | NUR ---
DISCHARGE PT LEFT VIA WHEELCHAIR. DISCHARGE INSTRUCTIONS GONE OVER WITH PATIENT AND SISTER. EXTRA SUPPLIES SENT WITH PATIENT. ME + INFORMATION FAXED TO [facility] FOR PATIENT. MIDLINE INCISION REMAINS CDI. STOMA PINK AND BEEFY. OUTPUT LIQUID THIS MORNING. SOFT FORMED STOOL IN BAG AT END OF SHIFT WITH GAS IN BAG. PT TOLERATING PO WELL, NO NAUSEA. PAIN CONTROLLED PER EMAR.
== END 2023-02-17 18:08 | disposition home or self-care (01) | DRG 853 ==
LOC: ER 10:53 → SURS 10:54 → PCU 16:04 → ER 16:15 → SURS 18:45 → PCU 02-09 23:42 → SURS 02-12 17:00
PROVIDERS: Internal Medicine; Physician Assistant; Student in an Organized Health Care Education/Training Program; ADMIT Surgery
PROC: 0DBN0ZZ Excision of Sigmoid Colon, Open Approach (ICD-10-PCS; principal; 2023-02-10 11:00)
PROC: 0D1B0Z4 Bypass Ileum to Cutaneous, Open Approach (ICD-10-PCS; 2023-02-10 11:00)
DX: A41.9 Sepsis, unspecified organism (principal); J96.02 Acute respiratory failure with hypercapnia; K57.20 Diverticulitis of large intestine with perforation and abscess without bleeding; E87.1 Hypo-osmolality and hyponatremia; N17.9 Acute kidney failure, unspecified; E87.4 Mixed disorder of acid-base balance; R65.20 Severe sepsis without septic shock; I10 Essential (primary) hypertension; E87.6 Hypokalemia; E03.9 Hypothyroidism, unspecified; F32.A Depression, unspecified; J10.1 Influenza due to other identified influenza virus with other respiratory manifestations; Z20.822 Contact with and (suspected) exposure to COVID-19; M19.90 Unspecified osteoarthritis, unspecified site; Z90.710 Acquired absence of both cervix and uterus; F41.9 Anxiety disorder, unspecified; F17.210 Nicotine dependence, cigarettes, uncomplicated; J44.9 Chronic obstructive pulmonary disease, unspecified; K66.8 Other specified disorders of peritoneum; Z86.15 Personal history of latent tuberculosis infection; Z93.2 Ileostomy status
CPT/HCPCS: 0202U; 36415; 71045; 71046; 71260; 74177; 80048; 80053; 82803; 82947; 83605; 83735; 84145; 84484; 85025; 85610; 85730; 86480; 86850; 86900; 86901; 87070; 87077; 87106; 87186; 87205; 87449; 88307; 93005; 93010; 94640; 94660; 94664; 94760; 94762; 96361; 96374-59; 96375; 96376; 97112; 97161; 97530; 99285-25; A9270; J0330; J0360; J0456; J1100; J1170; J1650; J1885; J1940; J2060; J2310; J2371; J2405; J2543; J2704; J3010; J7030; J7040; J7050; J7120; Q9967

== ENCOUNTER 2023-03-02 22:57 | Emergency (ER) | payer OTHER ==
[~2023-03-02] VITALS: Ht 165.1 cm; Wt 78.9 kg
[~2023-03-02 22:57] MED LIST: AMLO5 PO; ESCI20 PO; LEVSOD100 PO; LOSA50 PO; MELO7.5 PO
[2023-03-02 23:21] LABS: BASOPHILS ABSOLUTE AUTO 0.07 K/mm3 (0.00-0.23); BASOPHILS PERCENT AUTO 1 % (0-2); EOSINOPHILS ABSOLUTE AUTO 0.29 K/mm3 (0.00-0.68); EOSINOPHILS PERCENT AUTO 3 % (0-6); Hematocrit 37.9 % (33.0-51.0); Hemoglobin 13.1 g/dL (11.5-16.0); IMMATURE GRAN ABSOLUTE AUTO 0.05 K/mm3 (0.00-0.10); IMMATURE GRAN PERCENT AUTO 1 % (0-1); LYMPHOCYTES ABSOLUTE AUTO 3.61 K/mm3 (0.84-5.20); LYMPHOCYTES PERCENT AUTO 33 % (21-46); MONOCYTES ABSOLUTE AUTO 0.63 K/mm3 (0.16-1.47); MONOCYTES PERCENT AUTO 6 % (4-13); Mean Corpuscular HGB 33.4 pg (26.0-34.0); Mean Corpuscular HGB Conc 34.6 g/dL (31.5-36.5); Mean Corpuscular Volume 97 fL (80-100); Mean Platelet Volume 9.1 fL (9.1-12.4); NEUTROPHILS ABSOLUTE AUTO 6.31 K/mm3 (1.96-9.15); NEUTROPHILS PERCENT AUTO 58 % (41-73); Platelet Count 323 K/mm3 (150-400); RDW Coefficient Variation 12.8 % (11.7-14.2); RDW Standard Deviation 45.1 fL (35.1-46.3); Red Blood Cell Count 3.92 M/mm3 (3.80-5.20); White Blood Cell Count 10.96 K/mm3 (4.00-11.30)
[2023-03-02 23:38] LABS: Albumin, Blood 3.6 g/dL (3.4-5.0); Albumin/Globulin Ratio 0.6 (0.8-1.8); Bilirubin, Total 0.4 mg/dL (0.1-1.0); Bun/Creatinine Ratio 19.7 (12.0-20.0); Creatinine, Blood 0.61 mg/dL (0.40-1.00); Globulin, Blood 5.8 g/dL (2.2-4.0); Potassium, Blood 3.8 mmol/L (3.5-5.5); Total Protein, Blood 9.4 g/dL (6.4-8.2)
[2023-03-03 06:02] VITALS: BP 155/79
== END 2023-03-03 06:05 | disposition home or self-care (01) ==
LOC: ER 22:57
PROVIDERS: Student in an Organized Health Care Education/Training Program
DX: K94.13 Enterostomy malfunction (principal); G89.18 Other acute postprocedural pain; R10.9 Unspecified abdominal pain; E86.0 Dehydration; Z79.899 Other long term (current) drug therapy; I10 Essential (primary) hypertension; E03.9 Hypothyroidism, unspecified; M19.90 Unspecified osteoarthritis, unspecified site
CPT/HCPCS: 74177; 80053; 85025; 96374-59; 96375; 99283-25; J1885; J2405; J7120; Q9967

== ENCOUNTER 2023-03-03 08:30 | Day surgery (SDC) | payer OTHER | END 2023-03-03 22:41 | disposition home or self-care (01) | LOC: WOUND 08:30 | DX: K57.20 Diverticulitis of large intestine with perforation and abscess without bleeding (principal); K94.13 Enterostomy malfunction; I10 Essential (primary) hypertension; E03.9 Hypothyroidism, unspecified; F17.210 Nicotine dependence, cigarettes, uncomplicated | CPT/HCPCS: A9270; G0463 ==

== ENCOUNTER 2023-03-10 02:20 | Day surgery (SDC) | payer OTHER | END 2023-03-10 22:58 | disposition home or self-care (01) | LOC: WOUND 02:20 | DX: T81.32XA Disruption of internal operation (surgical) wound, not elsewhere classified, initial encounter (principal); K57.20 Diverticulitis of large intestine with perforation and abscess without bleeding; K94.13 Enterostomy malfunction; L24.B1 Irritant contact dermatitis related to digestive stoma or fistula | CPT/HCPCS: A9270; G0463 ==

== ENCOUNTER 2023-03-17 00:43 | Day surgery (SDC) | payer OTHER | END 2023-03-17 22:47 | disposition home or self-care (01) | LOC: WOUND 00:43 | DX: T81.32XA Disruption of internal operation (surgical) wound, not elsewhere classified, initial encounter (principal); K57.20 Diverticulitis of large intestine with perforation and abscess without bleeding; K94.13 Enterostomy malfunction; L24.B1 Irritant contact dermatitis related to digestive stoma or fistula | CPT/HCPCS: G0463 ==

== ENCOUNTER 2023-03-24 01:38 | Day surgery (SDC) | payer OTHER | END 2023-03-24 22:54 | disposition home or self-care (01) | LOC: WOUND 01:38 | DX: T81.32XA Disruption of internal operation (surgical) wound, not elsewhere classified, initial encounter (principal); K57.20 Diverticulitis of large intestine with perforation and abscess without bleeding; K94.13 Enterostomy malfunction; L24.B1 Irritant contact dermatitis related to digestive stoma or fistula | CPT/HCPCS: G0463 ==

== ENCOUNTER 2023-04-02 02:19 | Day surgery (SDC) | payer OTHER | END 2023-04-02 23:02 | disposition home or self-care (01) | LOC: WOUND 02:19 | DX: T81.32XA Disruption of internal operation (surgical) wound, not elsewhere classified, initial encounter (principal); K57.20 Diverticulitis of large intestine with perforation and abscess without bleeding; K94.13 Enterostomy malfunction; L24.B1 Irritant contact dermatitis related to digestive stoma or fistula | CPT/HCPCS: G0463 ==

== ENCOUNTER 2023-04-07 01:07 | Day surgery (SDC) | payer OTHER | END 2023-04-07 22:48 | disposition home or self-care (01) | LOC: WOUND 01:07 | DX: T81.32XA Disruption of internal operation (surgical) wound, not elsewhere classified, initial encounter (principal); K57.20 Diverticulitis of large intestine with perforation and abscess without bleeding; K94.13 Enterostomy malfunction; L24.B1 Irritant contact dermatitis related to digestive stoma or fistula | CPT/HCPCS: G0463 ==

== ENCOUNTER 2023-04-14 01:48 | Day surgery (SDC) | payer OTHER ==
[2023-04-15] MEDS ORDERED: MELO7.5 PO (12:46)
[2023-04-19] MEDS ORDERED: OXYC5 PO (12:04)
== END 2023-04-14 23:01 | disposition home or self-care (01) ==
LOC: WOUND 01:48
DX: T81.32XA Disruption of internal operation (surgical) wound, not elsewhere classified, initial encounter (principal); K94.13 Enterostomy malfunction; L24.B1 Irritant contact dermatitis related to digestive stoma or fistula; K57.20 Diverticulitis of large intestine with perforation and abscess without bleeding; Y83.8 Other surgical procedures as the cause of abnormal reaction of the patient, or of later complication, without mention of misadventure at the time of the procedure
CPT/HCPCS: G0463